=== PATIENT | female | born 1990 | race Caucasian/White ===

== ENCOUNTER 2017-04-12 11:38 | Emergency (ER) | payer OTHER ==
[~2017-04-12] VITALS: Ht 170.2 cm; Wt 126.6 kg
[2017-04-12 11:40] VITALS: Ht 170.2 cm; Wt 126.6 kg
[2017-04-12] MEDS ORDERED: SODIUM CHLORIDE 0.9% 1000ML 1,000 ML IV STA (12:14)
[2017-04-12 12:35] LABS: BASO % 0.2 %; BASO ABS # 0.02 K/uL (0-0.2); COMPLETE YES; EOS % 1.2 %; HEMATOCRIT 37.9 % (37-47); IG% 0.2 %; LYMPH % 19.4 %; LYMPH ABS # 1.95 K/uL (1.2-3.4); MEAN CELL VOLUME 92.9 fL (80-100); MEAN CORPUSCULAR HEMOGLOBIN 30.9 pg (25-34); MEAN CORPUSCULAR HGB CONC 33.2 g/dl (32-36); MEAN PLATELET VOLUME 9.6 fL (7.4-10.4); MONO % 8.1 %; NEUT % 70.9 %; PLATELET COUNT 258 K/uL (130-400); RED BLOOD COUNT 4.08 M/uL (4.2-5.4); WHITE BLOOD COUNT 10.04 K/uL (4.8-10.8)
[2017-04-12 12:42] LABS: PROTHROMBIN TIME (PATIENT) 10.7 SECONDS (9.0-12.0)
[2017-04-12 12:54] LABS: BUN/CREATININE RATIO 10.6 (10-20); CALCIUM 8.6 mg/dl (8.5-10.1); CREATININE 0.55 mg/dl (0.60-1.20); POTASSIUM 3.5 mmol/L (3.5-5.1)
[2017-04-12 12:57] LABS: ALB/GLOB RATIO 1.1 (0.9-2)
[2017-04-12 13:52] LABS: URINE APPEARANCE CLOUDY (CLEAR); URINE BILIRUBIN NEG (NEG); URINE COLOR ORANGE; URINE EPITHELIAL CELL AUTO >30 /lpf (0-5); URINE NITRITE NEG (NEG); URINE PH 6.5 (4.5-7.5); URINE SPECIFIC GRAVITY 1.014 (1.000-1.030); UROBILINOGEN NEG (NEG)
[2017-04-12 14:09] LABS: MANUAL MICROSCOPIC REQUIRED? NO; REVIEW REQ? NO
--- NOTE | 2017-04-12 14:30 | EMERGENCY ROOM VISIT NOTE ---
History Report prepared by Lali: Radha Lamb Under the Supervision of: Dr. Joel Dockery D.O. First contact with patient: 12:02 Chief Complaint: WEAKNESS Stated Complaint: WEAKNESS,PAIN,BLEEDING(ACUTE) History of Present Illness The patient is a 26 year old female who presents to the Emergency Room with complaints of persistent vaginal bleeding starting last night. The patient had an in [place] yesterday. She was 17 weeks into an single gestation . There was some placenta left behind. She received 2 ibuprofen and Flagyl yesterday, She had some minimal bleeding yesterday. Starting at 2230 last night she has been bleeding every 30 minutes to an hour and soaking 2 pads per hour. She reports lower abdominal cramping, weakness, fatigue, and lightheadedness. She denies any fever. This was her second . She has a child at home. She has a history of fibromyalgia. She denies any tobacco or alcohol use. Source of History: patient Onset: last night Position: other (vaginal) Quality: other (bleeding) Timing: other (persistent) Associated Symptoms: + abdominal pain, + fatigue, + weakness, No fevers Note: Pt reports feeling lightheaded. Review of Systems See HPI for pertinent positives & negatives. A total of 10 systems reviewed and were otherwise negative. Past Medical & Surgical Medical Problems: (1) Fibromyalgia Family History No pertinent family history stated. Social History Smoking Status: Never Smoker Marital Status: Occupation Status: unemployed Current/Historical Medications Scheduled Cephalexin Monohydrate (Keflex), 500 MG PO QID Scheduled PRN Oxycodone Immediate Rel Tab (Roxicodone Ir), 1-2 TAB PO Q4H PRN for Severe Pain Allergies Coded Allergies: Sulfa Antibiotics (Unverified Allergy, Unknown, RASH, 04/12/17) Tetracycline (Unverified Allergy, Unknown, ANAPHYLAXIS, 04/12/17) Physical Exam Vital Signs Date Time Temp Pulse Resp B/P (MAP) Pulse Ox O2 Delivery O2 Flow Rate FiO2 04/12/17 16:40 71 20 117/71 98 Room Air 04/12/17 14:55 73 18 115/62 100 Room Air 04/12/17 13:23 84 18 122/69 96 Room Air 04/12/17 12:19 83 04/12/17 12:17 98 Room Air 04/12/17 11:40 36.7 91 17 127/81 98 Room Air Physical Exam GENERAL: Patient is awake, alert, and in no acute distress. Patient is resting comfortably and showing no signs of anxiety EYES: The conjunctivae are clear. The pupils are round and reactive. EARS, NOSE, MOUTH AND THROAT: The nose is without any evidence of any deformity. Mucous membranes are moist tongue is midline NECK: The neck is nontender and supple. RESPIRATORY: Normal respiratory effort is noted there is no evidence of wheezing rhonchi or rales CARDIOVASCULAR: Regular rate and rhythm noted there no murmurs rubs or gallops normal S1 normal S2 GASTROINTESTINAL: The abdomen is soft. Bowel sounds are present in all quadrants. Abdomen is nontender PELVIS: External genitalia are normal in appearance, no rashes, speculum exam reveals significant pooling of blood in the vaginal vault, cervix open to fingertip, significant uterine tenderness on palpation. MUSCULOSKELETAL/EXTREMITIES: There is no evidence of gross deformity full range of motion is noted in the hips and shoulders SKIN: There is no obvious evidence of any rash. There are no petechiae, pallor or cyanosis noted. NEUROLOGIC: Patient is awake alert and oriented x3 Medical Decision & Procedures ER Provider Diagnostic Interpretation: Radiology results as stated below per my review and radiologist interpretation: ULTRASOUND OF THE PELVIS CLINICAL HISTORY: Recent elective . Vaginal bleeding. Reported history of retained proximal of conception. COMPARISON STUDY: No priors. TECHNIQUE: Real-time, grayscale, and color flow sonography of the pelvis is performed transabdominally. Endovaginal examination was deferred. Images are reviewed in the transverse and longitudinal planes. FINDINGS: Uterus: The uterus is mildly enlarged and heterogeneous in echotexture, measuring 15.4 x 5.7 x 10.5 cm. Endometrium: The endometrium measures up to 1.2 cm in thickness. There is a thick and hypervascular echogenic soft tissue thickening seen in the fundal region. This measures up to 5.2 cm. Echogenic reflectors within the endometrial cavity may represent small foci of gas. Ovaries: The ovaries were not visualized on this transabdominal examination. Pelvis: There is no free fluid in the cul-de-sac. No concerning adnexal lesion is seen. IMPRESSION: 1. The uterus is enlarged and heterogeneous. 2. There is heterogeneous, hypervascular, and echogenic soft tissue thickening seen involving the endometrium in the fundal region. This measures up to 5.2 cm and is highly concerning for retained product of conception. 3. The ovaries were not visualized on this transabdominal examination. 4. Small foci of gas are suggested within the endometrial canal, likely due to recent surgery. Correlate clinically for evidence of superimposed endometritis. Electronically signed by: Elijah Conteh M.D. 04/12/2017 2:49 PM Dictated Date/Time: 04/12/2017 2:45 PM Laboratory Results 04/12/17 12:15 Red Blood Count 4.08, Mean Corpuscular Volume 92.9, Mean Corpuscular Hemoglobin 30.9, Mean Corpuscular Hemoglobin Concent 33.2, Mean Platelet Volume 9.6, Neutrophils (%) (Auto) 70.9, Lymphocytes (%) (Auto) 19.4, Monocytes (%) (Auto) 8.1, Eosinophils (%) (Auto) 1.2, Basophils (%) (Auto) 0.2, Neutrophils # (Auto) 7.12, Lymphocytes # (Auto) 1.95, Monocytes # (Auto) 0.81, Eosinophils # (Auto) 0.12, Basophils # (Auto) 0.02 04/12/17 12:15 Test 04/12/17 12:15 04/12/17 13:40 White Blood Count 10.04 K/uL (4.8-10.8) Red Blood Count 4.08 M/uL (4.2-5.4) Hemoglobin 12.6 g/dL (12.0-16.0) Hematocrit 37.9 % (37-47) Mean Corpuscular Volume 92.9 fL (80-100) Mean Corpuscular Hemoglobin 30.9 pg (25-34) Mean Corpuscular Hemoglobin Concent 33.2 g/dl (32-36) Platelet Count 258 K/uL (130-400) Mean Platelet Volume 9.6 fL (7.4-10.4) Neutrophils (%) (Auto) 70.9 % Lymphocytes (%) (Auto) 19.4 % Monocytes (%) (Auto) 8.1 % Eosinophils (%) (Auto) 1.2 % Basophils (%) (Auto) 0.2 % Neutrophils # (Auto) 7.12 K/uL (1.4-6.5) Lymphocytes # (Auto) 1.95 K/uL (1.2-3.4) Monocytes # (Auto) 0.81 K/uL (0.11-0.59) Eosinophils # (Auto) 0.12 K/uL (0-0.5) Basophils # (Auto) 0.02 K/uL (0-0.2) RDW Standard Deviation 44.8 fL (36.4-46.3) RDW Coefficient of Variation 13.1 % (11.5-14.5) Immature Granulocyte % (Auto) 0.2 % Immature Granulocyte # (Auto) 0.02 K/uL (0.00-0.02) Prothrombin Time 10.7 SECONDS (9.0-12.0) Prothromb Time International Ratio 1.0 (0.9-1.1) Activated Partial Thromboplast Time 25.8 SECONDS (21.0-31.0) Partial Thromboplastin Ratio 1.0 Anion Gap 9.0 mmol/L (3-11) Est Creatinine Clear Calc Drug Dose 212.5 ml/min Estimated GFR () 149.0 Estimated GFR (Non- 128.5 BUN/Creatinine Ratio 10.6 (10-20) Calcium Level 8.6 mg/dl (8.5-10.1) Total Bilirubin 0.5 mg/dl (0.2-1) Aspartate Amino Transf (AST/SGOT) 10 U/L (15-37) Alanine Aminotransferase (ALT/SGPT) 18 U/L (12-78) Alkaline Phosphatase 61 U/L (45-117) Total Protein 6.6 gm/dl (6.4-8.2) Albumin 3.4 gm/dl (3.4-5.0) Globulin 3.2 gm/dl (2.5-4.0) Albumin/Globulin Ratio 1.1 (0.9-2) Human Chorionic Gonadotropin, Quant 8527 mIU/mL Urine Color ORANGE Urine Appearance CLOUDY (CLEAR) Urine pH 6.5 (4.5-7.5) Urine Specific [place] 1.014 (1.000-1.030) Urine Protein 1+ (NEG) Urine Glucose (UA) NEG (NEG) Urine Ketones TRACE (NEG) Urine Occult Blood 3+ (NEG) Urine Nitrite NEG (NEG) Urine Bilirubin NEG (NEG) Urine Urobilinogen NEG (NEG) Urine Leukocyte Esterase LARGE (NEG) Urine WBC (Auto) >30 /hpf (0-5) Urine RBC (Auto) >30 /hpf (0-4) Urine Hyaline Casts (Auto) 1-5 /lpf (0-5) Urine Epithelial Cells (Auto) >30 /lpf (0-5) Urine Bacteria (Auto) 1+ (NEG) Laboratory results per my review. Medications Administered Medications (Trade) Dose Ordered Sig/Dylan Route Start Time Stop Time Status Last Admin Dose Admin Sodium Chloride 1,000 ml @ 999 mls/hr Q1H1M STAT IV 04/12/17 12:14 04/12/17 13:14 DC 04/12/17 12:14 999 MLS/HR Morphine Sulfate (MoRPHine SULFATE INJ) 4 mg Q15M PRN IV 04/12/17 15:15 04/26/17 15:14 04/12/17 17:48 4 MG Ondansetron HCl (Zofran Inj) 4 mg NOW STAT IV 04/12/17 15:01 04/12/17 15:02 DC 04/12/17 15:08 4 MG Methylergonovine Maleate (Methergine Inj) 0.2 mg ONE STAT IM 04/12/17 15:54 04/12/17 15:56 DC 04/12/17 16:42 0.2 MG Ceftriaxone Sodium (Rocephin Inj) 1 gm NOW STAT IV 04/12/17 15:54 04/12/17 15:56 DC 04/12/17 16:40 1 GM ED Course 1211: The patient was evaluated in room B5. A complete history and physical examination were performed. 1214: NSS 1000 ml @ 999 mls/hr IV. 1501: Zofran Inj 4 mg IV. 1515: Morphine Sulfate 4 mg IV. 1523: I performed a pelvic exam in the presence of a female nurse at this time. Findings as listed in the physical exam. 1549: I discussed the patient's case with Dr. Ye, [facility] - Network Systems Analyst. We went over her recommendations. 1554: Rocephin Inj 1 gm IV, Methergine Inj 0.2 mg IM. 1555: Upon reevaluation, the patient is doing well. I discussed the results and treatment plan with her. She verbalized agreement of the treatment plan. She was discharged home. 1640: She has requested Network Systems Analyst come to see her. I have spoken with Dr. Ye who will be coming in to see the patient. 1715: The patient is being evaluated by Dr. Ye. Medical Decision Prior records/ancillary studies reviewed. Triage Nursing notes reviewed. Additional history obtained from the family. The patient's history was concerning for vaginal bleeding and abdominal pain. Differential diagnosis: Etiologies such as ectopic , dysfunction uterine bleeding, bleeding dyscrasia, trauma, infection, as well as others were entertained. Medication Reconciliation: I attest that I have personally reviewed the patient' s current medications list. Blood pressure screening: Patient was found to have normal blood pressure on screening and does not require follow-up. The patient is a 26-year-old female who presented to the emergency department for an evaluation of vaginal bleeding. The patient had a elective yesterday at 17 weeks' gestation. She was told when she left the procedure that she had some retained products of conception. She started having worsening cramping and vaginal bleeding. On my pelvic exam the patient did not have any acute bleeding. She had some blood that was pulling but no active bleeding. She had some endometrial tenderness but no other signs of endometritis such as fever or elevated white blood cell count. I discussed the patient's laboratory and radiographic studies with her. She was treated with IV fluids IV pain medicine and IV antiemetics. She was also started on an IV antibiotic as well as given Methergine in the emergency department. I discussed her case with the on-call CLAIMS ASSOCIATE physician. She has agreed to evaluate the patient in the emergency department for further management and disposition. [place] Drug Monitoring Program Search Results: patient reviewed within database, no issues identified Consults Time Called: [phone] Consulting Physician: Dr. Ye, [facility] - Network Systems Analyst Returned Call: [phone] I discussed the patient's case with her. We went over her recommendations. Impression Primary Impression: Retained products of conception Scribe Attestation The scribe's documentation has been prepared under my direction and personally reviewed by me in its entirety. I confirm that the note above accurately reflects all work, treatment, procedures, and medical decision making performed by me. Departure Information Dispostion Home / Self-Care Prescriptions Oxycodone Immediate Rel Tab (ROXICODONE IR) 5 Mg Tab 1-2 TAB PO Q4H Y for Severe Pain, #24 TAB Prov: Joel Dockery, DO 04/12/17 Cephalexin Monohydrate (KEFLEX) 500 Mg Cap 500 MG PO QID, #28 CAP Prov: Joel Dockery, DO 04/12/17 Referrals No Doctor, Assigned (PCP) Lela Ye, Yousif.O. Forms HOME CARE DOCUMENTATION FORM, IMPORTANT VISIT INFORMATION Patient Instructions ED Therapeutic , [facility] Additional Instructions Continue all medications as prescribed. Call the CLAIMS ASSOCIATE doctor in the morning to schedule a follow-up appointment. Return to the emergency department immediately if symptoms change worsen or the need arises.
--- NOTE | 2017-04-12 14:50 | DIAGNOSTIC IMAGING REPORT ---
ULTRASOUND OF THE PELVIS CLINICAL HISTORY: Recent elective . Vaginal bleeding. Reported history of retained proximal of conception. COMPARISON STUDY: No priors. TECHNIQUE: Real-time, grayscale, and color flow sonography of the pelvis is performed transabdominally. Endovaginal examination was deferred. Images are reviewed in the transverse and longitudinal planes. FINDINGS: Uterus: The uterus is mildly enlarged and heterogeneous in echotexture, measuring 15.4 x 5.7 x 10.5 cm. Endometrium: The endometrium measures up to 1.2 cm in thickness. There is a thick and hypervascular echogenic soft tissue thickening seen in the fundal region. This measures up to 5.2 cm. Echogenic reflectors within the endometrial cavity may represent small foci of gas. Ovaries: The ovaries were not visualized on this transabdominal examination. Pelvis: There is no free fluid in the cul-de-sac. No concerning adnexal lesion is seen. IMPRESSION: 1. The uterus is enlarged and heterogeneous. 2. There is heterogeneous, hypervascular, and echogenic soft tissue thickening seen involving the endometrium in the fundal region. This measures up to 5.2 cm and is highly concerning for retained product of conception. 3. The ovaries were not visualized on this transabdominal examination. 4. Small foci of gas are suggested within the endometrial canal, likely due to recent surgery. Correlate clinically for evidence of superimposed endometritis. Electronically signed by: Elijah Conteh M.D. 04/12/2017 2:49 PM Dictated Date/Time: 04/12/2017 2:45 PM
[2017-04-12] MEDS ORDERED: ONDANSETRON INJ 2 MG/ML 2 ML VIAL IV STA (15:01)
[2017-04-12] MEDS: MoRPHine SULFATE 4 MG/ML 1 ML CARP\\VIAL IV PRN ×2 (15:08→17:48)
[2017-04-12] MEDS ORDERED: METHYLERGONOVINE MALEATE 0.2 MG/ML AMP IM STA (15:54)
[2017-04-12] MEDS ORDERED: CEFTRIAXONE SOD INJ 1 GM ADDVIAL IV STA (15:54)
[2017-04-12] MEDS ORDERED: OXYC1TAB3 PO (16:17)
[2017-04-12] MEDS ORDERED: CEPH500C2 PO ×2 (16:17→23:03)
--- NOTE | 2017-04-12 17:57 | Medical Consult ---
Consultation Date of Consultation: Apr 12, 2017. Attending Physician: Dr. Dockery Reason for Consultation: Retained products of conception after 17 week History of Present Illness Patient is a 26-year-old 001 with last menstrual period of 12/16/2016 who [facility]. She was told after the procedure that there were remnants of placenta that they were unable to remove however that she would pass this on her own. She was treated with Flagyl and ibuprofen and discharged to home. She presents today to the emergency department with complaint of heavy vaginal bleeding off and on since the procedure yesterday low abdominal cramping and concerned for retained products of conception. She admits to some nausea however no vomiting she has not had any food or drink today. No problems with voiding or bowel movements. Gynecologic history: History of section 1. Pap up-to-date and normal per patient. No history of sexually transmitted infections. Past medical history: Fibromyalgia Past surgical history: Yesterday's D&E, 3 years ago, wrist surgery Past Medical/Surgical History Medical Problems: (1) Retained products of conception Status: Acute Family History No family history of bleeding disorders. Social History Smoking Status: Never Smoker Marital Status: Occupation Status: unemployed Allergies Coded Allergies: Sulfa Antibiotics (Unverified Allergy, Unknown, RASH, 04/12/17) Tetracycline (Unverified Allergy, Unknown, ANAPHYLAXIS, 04/12/17) Current Inpatient Medications Current Inpatient Medications Medications (Trade) Dose Ordered Sig/Dylan Route Start Time Stop Time Status Last Admin Dose Admin Morphine Sulfate (MoRPHine SULFATE INJ) 4 mg Q15M PRN IV 04/12/17 15:15 04/26/17 15:14 04/12/17 15:08 4 MG Review of Systems Constitutional: No problem reported Eyes: No problem reported ENT: No problem reported Respiratory: No problem reported Cardiovascular: No problem reported Abdomen: No problem reported Musculoskeletal: No problem reported Genitourinary - Female: + vaginal bleeding Neurologic: No problem reported Psychiatric: No problem reported Endocrine: No problem reported Hematologic / Lymphatic: No problem reported Integumentary: No problem reported Allergic / Immunologic: No problem reported Physical Exam Date Time Temp Pulse Resp B/P (MAP) Pulse Ox O2 Delivery O2 Flow Rate FiO2 04/12/17 16:40 71 20 117/71 98 Room Air 04/12/17 14:55 73 18 115/62 100 Room Air 04/12/17 13:23 84 18 122/69 96 Room Air 04/12/17 12:19 83 04/12/17 12:17 98 Room Air 04/12/17 11:40 36.7 91 17 127/81 98 Room Air General Appearance: WD/WN, no apparent distress Head: normocephalic ENT: hearing grossly normal Respiratory/Chest: normal breath sounds, no respiratory distress Cardiovascular: regular rate, rhythm Abdomen/GI: non tender, soft Extremities/Musculoskelatal: no calf tenderness Neurologic/Psych: alert, normal mood/affect, oriented x 3 Skin: normal color Laboratory Results Last 24 Hours Test 04/12/17 12:15 04/12/17 13:40 White Blood Count 10.04 K/uL Red Blood Count 4.08 M/uL Hemoglobin 12.6 g/dL Hematocrit 37.9 % Mean Corpuscular Volume 92.9 fL Mean Corpuscular Hemoglobin 30.9 pg Mean Corpuscular Hemoglobin Concent 33.2 g/dl Platelet Count 258 K/uL Mean Platelet Volume 9.6 fL Neutrophils (%) (Auto) 70.9 % Lymphocytes (%) (Auto) 19.4 % Monocytes (%) (Auto) 8.1 % Eosinophils (%) (Auto) 1.2 % Basophils (%) (Auto) 0.2 % Neutrophils # (Auto) 7.12 K/uL Lymphocytes # (Auto) 1.95 K/uL Monocytes # (Auto) 0.81 K/uL Eosinophils # (Auto) 0.12 K/uL Basophils # (Auto) 0.02 K/uL RDW Standard Deviation 44.8 fL RDW Coefficient of Variation 13.1 % Immature Granulocyte % (Auto) 0.2 % Immature Granulocyte # (Auto) 0.02 K/uL Prothrombin Time 10.7 SECONDS Prothromb Time International Ratio 1.0 Activated Partial Thromboplast Time 25.8 SECONDS Partial Thromboplastin Ratio 1.0 Sodium Level 139 mmol/L Potassium Level 3.5 mmol/L Chloride Level 107 mmol/L Carbon Dioxide Level 23 mmol/L Anion Gap 9.0 mmol/L Blood Urea Nitrogen 6 mg/dl Creatinine 0.55 mg/dl Est Creatinine Clear Calc Drug Dose 212.5 ml/min Estimated GFR () 149.0 Estimated GFR (Non- 128.5 BUN/Creatinine Ratio 10.6 Random Glucose 83 mg/dl Calcium Level 8.6 mg/dl Total Bilirubin 0.5 mg/dl Aspartate Amino Transf (AST/SGOT) 10 U/L Alanine Aminotransferase (ALT/SGPT) 18 U/L Alkaline Phosphatase 61 U/L Total Protein 6.6 gm/dl Albumin 3.4 gm/dl Globulin 3.2 gm/dl Albumin/Globulin Ratio 1.1 Human Chorionic Gonadotropin, Quant 8527 mIU/mL Urine Color ORANGE Urine Appearance CLOUDY Urine pH 6.5 Urine Specific [place] 1.014 Urine Protein 1+ Urine Glucose (UA) NEG Urine Ketones TRACE Urine Occult Blood 3+ Urine Nitrite NEG Urine Bilirubin NEG Urine Urobilinogen NEG Urine Leukocyte Esterase LARGE Urine WBC (Auto) >30 /hpf Urine RBC (Auto) >30 /hpf Urine Hyaline Casts (Auto) 1-5 /lpf Urine Epithelial Cells (Auto) >30 /lpf Urine Bacteria (Auto) 1+ Assessment & Plan Assessment: 26-year-old 001 at 16 weeks 4 days by LMP. Postoperative day 1 status post therapeutic with concern for retained products of conception I discussed risks benefits alternatives with patient of watching and waiting versus proceeding to the operating room for a repeat dilation and evacuation. Reviewed risk of waiting which is risk of retained products products chronic causing septic . Also reviewed risks of surgery including bleeding scarring infection damage to uterus tubes and ovaries and surrounding organs. Reviewed risk of uterine perforation especially increased given yesterday's procedure as well as risk of uterine scarring or Asherman syndrome given yesterday's procedure. All questions were answered of patient and her mother who was at bedside patient elected to proceed with surgery and she signed informed consent under no duress. We'll proceed to the operating room for suction dilation and evacuation under ultrasound guidance.
--- NOTE | 2017-04-12 17:58 | History & Physical Bridge Note ---
H&P Re-Evaluation Bridge Note: I have examined the patient, reviewed the History & Physical and in the interval since the performance of the History & Physical I have noted the following changes of clinical significance: No changes noted
[2017-04-12 21:13] VITALS: O2SAT 98
[2017-04-12] MEDS ORDERED: CARBOPROST TROMETHAMINE 250 MCG/ML AMP ONE (21:45)
[2017-04-12] MEDS ORDERED: PROPOFOL IV EMULSION 10 MG/ML 20 ML VIAL IV ONE (21:48)
[2017-04-12] MEDS ORDERED: FENTANYL CITRATE INJ 50 MCG/1 ML 2 ML VIAL ONE ×2 (21:49→23:12)
[2017-04-12] MEDS ORDERED: HYDROmorphone INJ 1 MG/ML SYR IV PRN (22:00)
[2017-04-12] MEDS ORDERED: EpHEDrine SULFATE INJ 50 MG/ML AMP IV PRN (22:00)
[2017-04-12] MEDS ORDERED: ATROPINE SULFATE 0.1 MG/ML 5ML SYR IV PRN (22:00)
[2017-04-12] MEDS ORDERED: ONDANSETRON INJ 2 MG/ML 2 ML VIAL IV PRN ×2 (22:00→23:00)
[2017-04-12] MEDS ORDERED: MISOPROSTOL 200 MCG TAB PR PRN (22:00)
[2017-04-12] MEDS ORDERED: PROMETHAZINE HCL INJ 6.25 MG in SODIUM CHLORIDE 0.9% 50ML 50 ML IV PRN (22:00)
[2017-04-12] MEDS ORDERED: ONDANSETRON INJ 2 MG/ML 2 ML VIAL ONE (22:20)
[2017-04-12] MEDS ORDERED: ROCURONIUM BROMID 50MG/5ML SYR ONE (22:20)
[2017-04-12] MEDS ORDERED: KETOROLAC TROMETHAMINE 30 MG/ML VIAL ONE (22:20)
[2017-04-12] MEDS ORDERED: SUCCINYLCHOLINE 100MG/5ML SYR IV ONE (22:20)
[2017-04-12] MEDS ORDERED: LIDOCAINE HCL 2% 2 ML VIAL (20MG/ML) ONE (22:20)
[2017-04-12] MEDS ORDERED: SODIUM CHLORIDE 0.9% 1000ML 1,000 ML IV SCH (22:51)
--- NOTE | 2017-04-12 22:53 | [facility] Post Operative Brief Note ---
Immediate Operative Summary Operative Date Apr 12, 2017. Pre-Operative Diagnosis Retained products of conception Post-Operative Diagnosis Retained products of conception Procedure(s) Performed Ultrasound Guided Dilation and Evacuation Surgeon Dr. Ye Instructor Ballroom Dancing Surgeon(s) none Estimated Blood Loss 700cc Findings Placental fragments and products of conception. At conclusion of case, transabdominal ultrasound showed no remaining intrauterine products of conception. Specimens A. Products of conception Drains bladder drained prior to procedure Anesthesia general Complication(s) None Disposition Recovery Room / PACU
[2017-04-12] MEDS ORDERED: PROMETHAZINE HCL INJ 25 MG in SODIUM CHLORIDE 0.9% 50ML 50 ML IV PRN (23:00)
[2017-04-12] MEDS ORDERED: OXYCODONE/ACETAMINOPHEN 5-325 TAB PO PRN ×2 (23:00)
[2017-04-12] MEDS ORDERED: METH0.2T39 PO (23:02)
[2017-04-12] MEDS ORDERED: METR500T PO (23:03)
--- NOTE | 2017-04-12 23:04 | Discharge Instructions ---
Discharge Instructions Date of Service Apr 12, 2017. Visit Reason for Visit: Weakness,Pain,Bleeding(Acute) Discharge Discharge Diagnosis / Problem: s/p suction D&E Discharge Goals Goal(s): Therapeutic intervention Activity Recommendations Activity Limitations: per Instructions/Follow-up section Anesthesia . Post Anesthesia Instructions: If you have had General Anesthesia or IV Sedation: * Do not drive today. * Resume driving when surgeon permits. * Do not make important decisions or sign legal documents today. * Call surgeon for: 1. Temperature elevations greater than 101 degrees F. 2. Uncontrollable pain. 3. Excessive bleeding. 4. Persistent nausea and vomiting. 5. Medication intolerance (nausea, vomiting or rash). * For nausea and vomiting use only clear liquids such as: tea, soda, bouillon until nausea subsides, then gradually increase diet as tolerated. * If you have any concerns or questions, call your surgeon's office. If physician is unavailable and it is an emergency, call 911 or go to the nearest emergency room. . Instructions / Follow-Up Instructions / Follow-Up ACTIVITY RECOMMENDATIONS: * Avoid tampons, douching, hot tubs, pools, and intercourse until bleeding has stopped. * May shower as usual. * No strenuous activity for 24-48 hours. After 24-48 hours, you may do anything you feel like doing (driving and sports are okay). SPECIAL CARE INSTRUCTIONS: Special Diet: * Mild nausea may occur in the immediate post-operative period. * Take clear liquids such as tea, cola or bouillon until all nausea has subsided; you may then resume your normal diet. Special Care: * Light bleeding and vaginal spotting can last from a few days to 3-4 weeks. Call your doctor if bleeding becomes heavier than the heaviest part of your period. * Check your temperature twice a day for one week. If it goes above 100.4 degrees Fahrenheit (38.0 Celsius), notify your doctor. * Call your doctor's office for an appointment for 6 weeks after your surgery. FOLLOW-UP VISIT: Call your doctor's office for an appointment for 6 weeks after your surgery. Diet Recommendations Recommended Home Diet: resume previous diet Procedures Procedures Performed: Ultrasound Guided Dilation and Evacuation Pending Studies Studies pending at discharge: no Medical Emergencies . Who to Call and When: Medical Emergencies: If at any time you feel your situation is an emergency, please call 911 immediately. . Non-Emergent Contact Non-Emergency issues call your: Primary Care Provider, Residency Director . . "Provider Documentation" section prepared by Lela Ye. .
[2017-04-12] MEDS ORDERED: MISOPROSTOL 200 MCG TAB PR STA (23:05)
[2017-04-12] MEDS: FENTANYL CITRATE INJ 50 MCG/1 ML 2 ML VIAL IV PRN ×2 (23:15→23:44)
--- NOTE | 2017-04-12 23:39 | [facility] Operative Report ---
Operative Report Operative Date Apr 12, 2017. Pre-Operative Diagnosis Retained products of conception Post-Operative Diagnosis Retained products of conception Procedure(s) Performed Ultrasound Guided Dilation and Evacuation Surgeon Dr. Ye Improvement Rn Surgeon(s) none Estimated Blood Loss 700cc Findings Placental fragments and large amounts of products of conception. At conclusion of procedure transabdominal ultrasound showed no retained products of conception and a thin uterine lining. Specimens A. Products of conception Drains bladder drained prior to procedure Anesthesia general Complication(s) None Disposition Recovery Room / PACU Indications Patient is a 26-year-old 001 at 16 weeks 4 days who underwent a therapeutic at [facility] in [place] yesterday. She was told after yesterday's procedure that she possibly had retained placental fragments that were unable to be removed during the procedure. Today she had heavy vaginal bleeding with passage of clots and presented to the emergency department for further evaluation. Ultrasound revealed a 5 cm hypervascular mass in the fundal region of the uterus that appeared to be retained products of conception. Description of Procedure The patient was seen in the preoperative holding area where risks benefits alternatives to surgery were reviewed she elected to proceed with surgery. She had signed informed consent previously. She was then taken to the operating room where general anesthesia was introduced a timeout was confirmed. She had been given Rocephin in the emergency department. Her bladder was drained. A weighted speculum was placed in the vagina, the cervix was visualized and the anterior lip was grasped with a single-tooth tenaculum. The cervix was gently dilated to admit a 14 mm curved suction curet. Using ultrasound guidance by an strategy specialist from the radiology department the gentle suction suction curettage was performed under direct ultrasound visualization. A sharp banjo curette was used to perform a gentle sweep of the products of conception and additional passes of the suction curet were made until all products were removed. TransAbdominal ultrasound revealed no remaining products of conception at the conclusion of the case. Hemabate was given for hemostatic purposes the uterus clamped down and excellent hemostasis was noted. All instruments were removed from the vagina. The patient tolerated the procedure well was taken to the recovery room in stable and good condition. She will be discharged home following her recovery with prescriptions for Flagyl Keflex and Methergine due to doxycycline allergy. She is to follow-up in the office within 1 week for postoperative visit. I attest to the content of the Intraoperative Record and any orders documented therein. Any exceptions are noted below.
[2017-04-13] MEDS ORDERED: METHYLERGONOVINE MALEATE 0.2 MG TAB PO SCH
[2017-04-13 00:25] VITALS: BP 123/79; PULSE 75; TEMP 35.9; O2SAT 94
[2017-04-13] MEDS ORDERED: OXYCODONE/ACETAMINOPHEN 5-325 TAB ONE (00:28)
[2017-04-13 00:45] VITALS: BP 119/82; PULSE 65; TEMP 36; O2SAT 93
--- NOTE | 2017-04-13 01:28 | Anesthesiology Progress Note ---
Anesthesia Post Op Note Date & Time Apr 13, 2017 at 01:28 Vital Signs Pain Intensity: 6.0 Vital Signs Past 12 Hours Date Time Temp Pulse Resp B/P (MAP) Pulse Ox O2 Delivery O2 Flow Rate FiO2 04/13/17 00:45 36.0 65 18 119/82 (94) 93 Room Air 04/13/17 00:31 60 18 116/91 (99) 96 Room Air 04/13/17 00:25 35.9 75 123/79 94 Room Air 04/13/17 00:20 75 18 122/82 (101) 93 Room Air 04/13/17 00:02 74 18 128/92 (98) 93 Room Air 04/12/17 23:55 58 18 124/82 (98) 94 Room Air 04/12/17 23:45 36.0 57 18 123/79 (85) 91 Room Air 04/12/17 23:36 129/81 (89) 04/12/17 23:35 57 18 04/12/17 23:35 58 18 92 04/12/17 23:30 63 18 04/12/17 23:30 36.0 63 18 129/81 (89) 92 Room Air 04/12/17 23:25 65 17 04/12/17 23:25 63 17 91 04/12/17 23:20 80 14 04/12/17 23:20 78 14 91 04/12/17 23:15 69 22 94 04/12/17 23:15 69 22 04/12/17 23:10 64 14 04/12/17 23:10 62 14 95 04/12/17 23:09 75 13 04/12/17 23:09 78 13 94 04/12/17 23:05 66 17 95 04/12/17 23:05 66 17 04/12/17 23:04 68 17 96 04/12/17 23:04 69 17 04/12/17 23:01 134/81 (109) 04/12/17 23:01 134/81 04/12/17 23:00 75 18 98 04/12/17 23:00 74 18 04/12/17 22:59 79 15 97 04/12/17 22:59 79 15 04/12/17 22:54 79 17 04/12/17 22:54 81 17 96 04/12/17 22:52 123/84 04/12/17 22:50 117/103 04/12/17 22:49 36.2 79 20 123/89 95 Room Air 04/12/17 22:49 89 16 96 04/12/17 22:49 93 16 04/12/17 21:13 71 20 105/71 98 Room Air 04/12/17 20:06 78 20 128/66 98 Room Air 04/12/17 18:41 67 19 102/57 98 Room Air 04/12/17 17:55 78 20 115/69 97 Room Air 04/12/17 16:40 71 20 117/71 98 Room Air 04/12/17 14:55 73 18 115/62 100 Room Air Notes Mental Status: alert / awake / arousable, participated in evaluation Pt Amnestic to Procedure: Yes Nausea / Vomiting: adequately controlled Pain: adequately controlled Airway Patency, RR, SpO2: stable & adequate BP & HR: stable & adequate Hydration State: stable & adequate Anesthetic Complications: no major complications apparent
--- NOTE | 2017-04-13 09:40 | DIAGNOSTIC IMAGING REPORT ---
ULTRASOUND GUIDANCE FOR DILATATION AND EVACUATION CLINICAL HISTORY: Retained products of conception. COMPARISON STUDY: ultrasound April 12, 2017. PROCEDURE: Ultrasound guidance was provided for dilatation and evacuation. These images again demonstrate a markedly thickened endometrium as shown on prior ultrasound. No radiologist was present for this exam. IMPRESSION: Ultrasound guidance provided for dilatation and evacuation for retained products of conception. Electronically signed by: Blue Ayers M.D. 04/13/2017 9:39 AM Dictated Date/Time: 04/13/2017 9:38 AM
== END 2017-04-12 21:30 | disposition home or self-care (01) ==
LOC: C.EDB 11:39
DX: O73.1 Retained portions of placenta and membranes, without hemorrhage (principal); M79.7 Fibromyalgia

== ENCOUNTER 2017-06-06 12:10 | Emergency (ER) | payer OTHER ==
[~2017-06-06] VITALS: Ht 170.2 cm; Wt 120.3 kg
[~2017-06-06 12:10] MED LIST: CEPH500C2 PO; METH0.2T39 PO; OXYC1TAB3 PO
[2017-06-06 12:13] VITALS: TEMP 37; Ht 170.2 cm; Wt 120.3 kg
[2017-06-06] MEDS ORDERED: LORAZEPAM 0.5 MG TAB PO STA (12:28)
[2017-06-06] MEDS ORDERED: ONDANSETRON INJ 2 MG/ML 2 ML VIAL IV STA (12:28)
[2017-06-06] MEDS ORDERED: BCPILLS PO (12:33)
[2017-06-06] MEDS ORDERED: SERT-234 PO (12:33)
--- NOTE | 2017-06-06 12:33 | EMERGENCY ROOM VISIT NOTE ---
History Report prepared by Lali: Tegan White Under the Supervision of: Dr. Nilo Beasley M.D. First contact with patient: 12:17 Chief Complaint: FLU LIKE SX Stated Complaint: CHEST PAINS, HEADACHE, NO APPETITE History of Present Illness The patient is a 26 year old white female with a past medical history of generalized anxiety, insomnia, seasonal depression, and fibromyalgia who presents to the ED with a cc of flu-like symptoms beginning two days ago. The patient takes 100 mg Zoloft. Positive chest pain, anxiety, racing thoughts, sore throat, shortness of breath, chills, nausea, headache, body ache and loss of appetite. Negative: cough, abd pain, vomiting fevers. The patient states that she has a behavioral health appointment coming up. The pt's LNMP 2 weeks ago. Source of History: patient Onset: 2 days aqgo Timing: constant Associated Symptoms: + chills, + headache, + sorethroat, + chest pain, + SOB , + nausea, No fevers, No cough, No vomiting, No abdominal pain Note: Pt notes anxiety, racing thoughts, body aches and loss of appetite. Review of Systems See HPI for pertinent positives and negatives. A total of ten systems were reviewed and were otherwise negative. Past Medical & Surgical Medical Problems: (1) Anxiety (2) Fibromyalgia (3) Insomnia (4) Seasonal depression Family History no pertinent family history stated. Social History Smoking Status: Never Smoker Marital Status: Occupation Status: employed Current/Historical Medications Scheduled Control Pills ( Control Pills), 1 TAB PO DAILY Sertraline (Zoloft), 100 MG PO DAILY Scheduled PRN Lorazepam (Ativan), 0.5 MG PO Q6H PRN for Anxiety/Agitation Allergies Coded Allergies: Sulfa Antibiotics (Unverified Allergy, Unknown, RASH, 06/06/17) Tetracycline (Unverified Allergy, Unknown, ANAPHYLAXIS, 06/06/17) Physical Exam Vital Signs Date Time Temp Pulse Resp B/P (MAP) Pulse Ox O2 Delivery O2 Flow Rate FiO2 06/06/17 14:06 75 18 142/94 98 06/06/17 13:33 67 18 147/94 96 Room Air 06/06/17 12:13 37.0 85 16 115/84 99 Room Air Physical Exam GENERAL: Awake, alert, well-appearing, NAD HENT: Normocephalic, atraumatic. EYES: Normal conjunctiva. Sclera non-icteric. NECK: Supple. No nuchal rigidity. FROM. RESPIRATORY: CTAB, no rhonchi, wheezing, crackles CARDIAC: RRR, no MRG ABDOMEN: Soft, NTND, BS+ MSK: No chest wall TTP, no LE edema NEURO: GCS 15, CN 2-12 intact, moves all 4s on command SKIN: No rash or jaundice noted. Medical Decision & Procedures Laboratory Results 06/06/17 12:40 Red Blood Count 4.36, Mean Corpuscular Volume 92.9, Mean Corpuscular Hemoglobin 30.7, Mean Corpuscular Hemoglobin Concent 33.1, Mean Platelet Volume 9.9, Neutrophils (%) (Auto) 51.9, Lymphocytes (%) (Auto) 38.4, Monocytes (%) (Auto) 8.2, Eosinophils (%) (Auto) 1.0, Basophils (%) (Auto) 0.3, Neutrophils # (Auto) 3.23, Lymphocytes # (Auto) 2.39, Monocytes # (Auto) 0.51, Eosinophils # (Auto) 0.06, Basophils # (Auto) 0.02 06/06/17 12:40 Test 06/06/17 12:40 06/06/17 12:50 06/06/17 13:20 06/06/17 13:24 White Blood Count 6.22 K/uL (4.8-10.8) Red Blood Count 4.36 M/uL (4.2-5.4) Hemoglobin 13.4 g/dL (12.0-16.0) Hematocrit 40.5 % (37-47) Mean Corpuscular Volume 92.9 fL (80-100) Mean Corpuscular Hemoglobin 30.7 pg (25-34) Mean Corpuscular Hemoglobin Concent 33.1 g/dl (32-36) Platelet Count 320 K/uL (130-400) Mean Platelet Volume 9.9 fL (7.4-10.4) Neutrophils (%) (Auto) 51.9 % Lymphocytes (%) (Auto) 38.4 % Monocytes (%) (Auto) 8.2 % Eosinophils (%) (Auto) 1.0 % Basophils (%) (Auto) 0.3 % Neutrophils # (Auto) 3.23 K/uL (1.4-6.5) Lymphocytes # (Auto) 2.39 K/uL (1.2-3.4) Monocytes # (Auto) 0.51 K/uL (0.11-0.59) Eosinophils # (Auto) 0.06 K/uL (0-0.5) Basophils # (Auto) 0.02 K/uL (0-0.2) RDW Standard Deviation 45.4 fL (36.4-46.3) RDW Coefficient of Variation 13.4 % (11.5-14.5) Immature Granulocyte % (Auto) 0.2 % Immature Granulocyte # (Auto) 0.01 K/uL (0.00-0.02) Anion Gap 5.0 mmol/L (3-11) Est Creatinine Clear Calc Drug Dose 124.7 ml/min Estimated GFR () 100.2 Estimated GFR (Non- 86.5 BUN/Creatinine Ratio 10.3 (10-20) Calcium Level 9.0 mg/dl (8.5-10.1) Total Bilirubin 0.6 mg/dl (0.2-1) Direct Bilirubin 0.2 mg/dl (0-0.2) Aspartate Amino Transf (AST/SGOT) 12 U/L (15-37) Alanine Aminotransferase (ALT/SGPT) 24 U/L (12-78) Alkaline Phosphatase 72 U/L (45-117) Total Protein 7.6 gm/dl (6.4-8.2) Albumin 3.9 gm/dl (3.4-5.0) Salicylates Level < 1.7 mg/dl (2.8-20) Acetaminophen Level < 2 ug/ml (10-30) Influenza Type A Antigen Neg for Influ A (NEG) Influenza Type B Antigen Neg for Influ B (NEG) Urine Color YELLOW Urine Appearance CLEAR (CLEAR) Urine pH 8.0 (4.5-7.5) Urine Specific Fletcher 1.018 (1.000-1.030) Urine Protein NEG (NEG) Urine Glucose (UA) NEG (NEG) Urine Ketones NEG (NEG) Urine Occult Blood NEG (NEG) Urine Nitrite NEG (NEG) Urine Bilirubin NEG (NEG) Urine Urobilinogen NEG (NEG) Urine Leukocyte Esterase NEG (NEG) Urine WBC (Auto) 0 /hpf (0-5) Urine RBC (Auto) 0-4 /hpf (0-4) Urine Hyaline Casts (Auto) 0 /lpf (0-5) Urine Epithelial Cells (Auto) 0-5 /lpf (0-5) Urine Bacteria (Auto) NEG (NEG) Urine Test NEG (NEG) Ethyl Alcohol mg/dL < 3.0 mg/dl (0-3) Laboratory results reviewed by me Medications Administered Medications (Trade) Dose Ordered Sig/Dylan Route Start Time Stop Time Status Last Admin Dose Admin Lorazepam (Ativan Tab) 0.5 mg NOW STAT PO 06/06/17 12:28 06/06/17 12:33 DC 06/06/17 12:45 0.5 MG Ondansetron HCl (Zofran Inj) 4 mg NOW STAT IV 06/06/17 12:28 06/06/17 12:33 DC 06/06/17 12:45 4 MG ED Course 1220: The patient was evaluated in room C4. A complete history and physical exam was performed. 1357: I reevaluated the patient. Discussed results and discharge instructions: She verbalized understanding and agreement. The patient is ready for discharge. Medical Decision The patient is a 26 year old white female with a past medical history of generalized anxiety, insomnia, seasonal depression, and fibromyalgia who presents to the ED with a cc of flu-like symptoms beginning two days ago. The patient takes 100 mg Zoloft. Positive chest pain, anxiety, racing thoughts, difficulty breathing sore throat, chills, nausea, headache, body ache and loss of appetite. Negative: cough, abd pain, vomiting fevers. Differential diagnosis includes but it not limited to:anxiety, depression, flu, dehydration, and URI. Patient was seen and evaluated at the bedside. Patient denied any SI or HI. Patient was mildly anxious on exam. Patient was concerned she had a recent coworker that he tested positive for the flu and she had some similar symptoms including body aches. Patient was evaluated with a flu swab as well as blood work. Our mental health specialist O also spoke with the patient. Patient was cleared from our standpoint that will likely be able to have follow-up within the next week. Patient's lab work was fairly unremarkable. Patient had a negative UA. Patient UPT negative. Patient screen negative. Patient was told she will be given a short course of Ativan as needed for anxiety given the fact that she has been unable to follow up with her behavioral health specialist but has made an attempted effort over the last 2 weeks to obtain an appointment. Patient was told she shouldn't take this medication as needed for severe anxiety but should continue to take her Zoloft and then discuss any condition changes with her behavioral health specialist. Patient was given strict follow- up for discharge, and return precautions. Patient agreed with plan of care and was discharged home. Medication Reconcilliation Current Medication List: was personally reviewed by me Blood Pressure Screening Patient's blood pressure: Normal blood pressure Impression Primary Impression: Anxiety Additional Impression: Upper respiratory infection Scribe Attestation The scribe's documentation has been prepared under my direction and personally reviewed by me in its entirety. I confirm that the note above accurately reflects all work, treatment, procedures, and medical decision making performed by me. Departure Information Dispostion Home / Self-Care Prescriptions Lorazepam (ATIVAN) 1 Mg Tab 0.5 MG PO Q6H Y for Anxiety/Agitation, #10 TAB Prov: Nilo Beasley M.D. 06/06/17 Referrals No Doctor, Assigned (PCP) Forms HOME CARE DOCUMENTATION FORM, IMPORTANT VISIT INFORMATION Patient Instructions Anxiety Body Response, Anxiety Disorder Tx Meds, ED Upper Resp Infec No Abx Tx , My [facility] Additional Instructions Please return to the emergency department if you have worsening or recurrent symptoms not amenable to at-home treatment. Please call for a follow-up appointment with her primary care physician. Please take your medications as prescribed. If you have other concerns and/or complaints please feel free to also call your primary care physician's office or return the ED for further evaluation, management, and treatment. You received narcotic or benzodiazepene medication while in the emergency room today. This is an addictive medication that may cause drowziness as well as constipation. Do not drive, operate heavy machinery, or drink alcohol under the influence of this medication. Take 600 mg Ibuprofen every 6 hours w/ food for two days as needed for pain. May cause upset stomach. Take 1000mg tylenol every 6 hours for pain. You have been examined and treated today on an emergency basis only. This is not a substitute for, or an effort to provide, complete comprehensive medical care. It is impossible to recognize and treat all injuries or illnesses in a single emergency department visit. It is therefore important that you follow up closely with [facility]. Call as soon as possible for an appointment. Problem Qualifiers Additional Impression: Upper respiratory infection URI type: unspecified URI Qualified Codes: J06.9 - Acute upper respiratory infection, unspecified
[2017-06-06 13:06] LABS: BASO % 0.3 %; BASO ABS # 0.02 K/uL (0-0.2); COMPLETE YES; HEMATOCRIT 40.5 % (37-47); IG% 0.2 %; LYMPH % 38.4 %; LYMPH ABS # 2.39 K/uL (1.2-3.4); MEAN CELL VOLUME 92.9 fL (80-100); MEAN CORPUSCULAR HEMOGLOBIN 30.7 pg (25-34); MEAN CORPUSCULAR HGB CONC 33.1 g/dl (32-36); MEAN PLATELET VOLUME 9.9 fL (7.4-10.4); MONO % 8.2 %; NEUT % 51.9 %; PLATELET COUNT 320 K/uL (130-400); RED BLOOD COUNT 4.36 M/uL (4.2-5.4); WHITE BLOOD COUNT 6.22 K/uL (4.8-10.8)
[2017-06-06 13:25] LABS: BUN/CREATININE RATIO 10.3 (10-20); CREATININE 0.91 mg/dl (0.60-1.20); POTASSIUM 3.6 mmol/L (3.5-5.1)
[2017-06-06 13:29] LABS: ACETAMINOPHEN < 2 ug/ml (10-30)
[2017-06-06 13:35] LABS: URINE APPEARANCE CLEAR (CLEAR); URINE BILIRUBIN NEG (NEG); URINE COLOR YELLOW; URINE EPITHELIAL CELL AUTO 0-5 /lpf (0-5); URINE NITRITE NEG (NEG); URINE SPECIFIC GRAVITY 1.018 (1.000-1.030); UROBILINOGEN NEG (NEG); ZZUR CULT IF INDIC CLEAN CATCH NO
[2017-06-06 13:38] LABS: MANUAL MICROSCOPIC REQUIRED? NO; REVIEW REQ? NO
[2017-06-06] MEDS ORDERED: ATV/1 PO (13:53)
[2017-06-06 14:06] VITALS: BP 142/94; PULSE 75; O2SAT 98
== END 2017-06-06 14:07 | disposition home or self-care (01) ==
LOC: C.EDB 12:11 → C.EDC 14:07
DX: F41.9 Anxiety disorder, unspecified (principal); J06.9 Acute upper respiratory infection, unspecified; F33.9 Major depressive disorder, recurrent, unspecified; Z79.899 Other long term (current) drug therapy

== ENCOUNTER 2017-07-23 15:25 | Emergency (ER) | payer OTHER ==
[~2017-07-23] VITALS: Ht 170.2 cm; Wt 120.9 kg
[~2017-07-23 15:25] MED LIST changes: +BCPILLS PO; -CEPH500C2 PO; -METH0.2T39 PO; -OXYC1TAB3 PO; +SERT-234 PO
[2017-07-23 15:29] VITALS: TEMP 36.8; Ht 170.2 cm; Wt 120.9 kg
--- NOTE | 2017-07-23 16:07 | EMERGENCY ROOM VISIT NOTE ---
History First contact with patient: 15:49 Chief Complaint: ABDOMINAL PAIN Stated Complaint: STOMACH VIRUS, BACK PAIN, STOMACH PRESSURE/PAIN Nursing Triage Summary: Patient reports she had n/v/d for approx 48 hours states that today she is having sharp pain in lower abd and back. Patient also feels like her abd is distended. Patient still having nausea History of Present Illness The patient is a 26 year old female who presents to the Emergency Room with complaints of abdominal pain that started getting severe this morning. The patient reports having a GI illness yesterday. She had multiple episodes of vomiting and diarrhea. She also reports a fever of 101F. The vomiting and diarrhea have improved. The fever has also improved. She develops pain in the middle and lower abdomen earlier today. It has gotten progressively worse throughout the day. She also feels bloated. She denies any blood in her stool. She does note that people at work also had vomiting and diarrhea. Review of Systems 10 system review performed and negative unless noted in HPI or below Past Medical/Surgical History Medical Problems: (1) Anxiety (2) Fibromyalgia (3) Insomnia (4) Seasonal depression Social History Smoking Status: Never Smoker Marital Status: Occupation Status: employed Current/Historical Medications Scheduled Control Pills ( Control Pills), 1 TAB PO DAILY Bismuth Subsalicylate (Pepto-Bismol), 1 DOSE PO PRN Dicyclomine Hcl (Bentyl), 20 MG PO TID Duloxetine Hcl (Cymbalta), 60 MG PO DAILY Fish Oil ([place]-3), 1 CAP PO DAILY Ondasetron Odt (Zofran Odt), 4 MG SL Q6H Zolpidem Tartrate (Ambien), 1 TAB PO HS Physical Exam Vital Signs Date Time Temp Pulse Resp B/P (MAP) Pulse Ox O2 Delivery O2 Flow Rate FiO2 07/23/17 17:20 85 20 141/92 98 Room Air 07/23/17 15:29 36.8 95 20 136/85 96 Room Air Physical Exam VITALS: Vitals are noted on the nurse's note and reviewed by myself. Vital signs stable. GENERAL: 26-year-old female, in no acute distress, nondiaphoretic, well- developed well-nourished. SKIN: The skin was without rashes, erythema, edema, or bruising. HEAD: Normocephalic atraumatic. MOUTH: Mucous membranes dry NECK: No JVD. HEART: Regular rate and rhythm without murmurs gallops or rubs. LUNGS: Clear to auscultation bilaterally without wheezes, rales or rhonchi. No accessory muscle use. ABDOMEN: Positive bowel sounds x 4.Soft, mild tenderness to palpation in the epigastric region. without organomegaly. No guarding or rebound tenderness. MUSCULOSKELETAL: No muscle atrophy, erythema, or edema noted. Strength 5/5 throughout. NEURO: Patient was alert and oriented to person place and time. Normal sensation to touch. No focal neurological deficits. Medical Decision & Procedures ER Provider Diagnostic Interpretation: abdominal xrays IMPRESSION: 1. No active disease in the chest. 2. Nonobstructed abdominal bowel gas pattern. Electronically signed by: Elijah Conteh M.D. 07/23/2017 4:54 PM Laboratory Results 07/23/17 16:05 Red Blood Count 4.13, Mean Corpuscular Volume 90.3, Mean Corpuscular Hemoglobin 29.5, Mean Corpuscular Hemoglobin Concent 32.7, Mean Platelet Volume 9.3, Neutrophils (%) (Auto) 53.2, Lymphocytes (%) (Auto) 36.4, Monocytes (%) (Auto) 9.2, Eosinophils (%) (Auto) 0.8, Basophils (%) (Auto) 0.2, Neutrophils # (Auto) 3.35, Lymphocytes # (Auto) 2.29, Monocytes # (Auto) 0.58, Eosinophils # (Auto) 0.05, Basophils # (Auto) 0.01 07/23/17 16:05 Test 07/23/17 16:05 07/23/17 17:20 White Blood Count 6.29 K/uL (4.8-10.8) Red Blood Count 4.13 M/uL (4.2-5.4) Hemoglobin 12.2 g/dL (12.0-16.0) Hematocrit 37.3 % (37-47) Mean Corpuscular Volume 90.3 fL (80-100) Mean Corpuscular Hemoglobin 29.5 pg (25-34) Mean Corpuscular Hemoglobin Concent 32.7 g/dl (32-36) Platelet Count 248 K/uL (130-400) Mean Platelet Volume 9.3 fL (7.4-10.4) Neutrophils (%) (Auto) 53.2 % Lymphocytes (%) (Auto) 36.4 % Monocytes (%) (Auto) 9.2 % Eosinophils (%) (Auto) 0.8 % Basophils (%) (Auto) 0.2 % Neutrophils # (Auto) 3.35 K/uL (1.4-6.5) Lymphocytes # (Auto) 2.29 K/uL (1.2-3.4) Monocytes # (Auto) 0.58 K/uL (0.11-0.59) Eosinophils # (Auto) 0.05 K/uL (0-0.5) Basophils # (Auto) 0.01 K/uL (0-0.2) RDW Standard Deviation 48.2 fL (36.4-46.3) RDW Coefficient of Variation 14.6 % (11.5-14.5) Immature Granulocyte % (Auto) 0.2 % Immature Granulocyte # (Auto) 0.01 K/uL (0.00-0.02) Anion Gap 6.0 mmol/L (3-11) Est Creatinine Clear Calc Drug Dose 133.9 ml/min Estimated GFR () 108.8 Estimated GFR (Non- 93.9 BUN/Creatinine Ratio 14.2 (10-20) Calcium Level 8.5 mg/dl (8.5-10.1) Magnesium Level 1.9 mg/dl (1.8-2.4) Total Bilirubin 0.3 mg/dl (0.2-1) Aspartate Amino Transf (AST/SGOT) 10 U/L (15-37) Alanine Aminotransferase (ALT/SGPT) 16 U/L (12-78) Alkaline Phosphatase 61 U/L (45-117) Total Protein 7.1 gm/dl (6.4-8.2) Albumin 3.6 gm/dl (3.4-5.0) Globulin 3.5 gm/dl (2.5-4.0) Albumin/Globulin Ratio 1.0 (0.9-2) Urine Color DK YELLOW Urine Appearance CLEAR (CLEAR) Urine pH 6.5 (4.5-7.5) Urine Specific [place] 1.025 (1.000-1.030) Urine Protein NEG (NEG) Urine Glucose (UA) NEG (NEG) Urine Ketones NEG (NEG) Urine Occult Blood NEG (NEG) Urine Nitrite NEG (NEG) Urine Bilirubin NEG (NEG) Urine Urobilinogen NEG (NEG) Urine Leukocyte Esterase NEG (NEG) Urine Test NEG (NEG) Medications Administered Medications (Trade) Dose Ordered Sig/Dylan Route Start Time Stop Time Status Last Admin Dose Admin Sodium Chloride 1,000 ml @ 999 mls/hr Q1H1M ONCE IV 07/23/17 16:15 07/23/17 17:15 DC 07/23/17 16:19 999 MLS/HR Morphine Sulfate (MoRPHine SULFATE INJ) 4 mg Q1H PRN IV 07/23/17 16:15 07/23/17 18:32 DC 07/23/17 17:34 4 MG Ondansetron HCl (Zofran Inj) 4 mg Q2H PRN IV 07/23/17 16:15 07/23/17 18:32 DC 07/23/17 16:19 4 MG Dicyclomine HCl (Bentyl Cap) 20 mg STK-MED ONCE .ROUTE 07/23/17 16:16 07/23/17 16:17 DC 07/23/17 16:19 20 MG ED Course Patient was seen and examined Vital signs including blood pressure were reviewed medications list was verified with patient Labs were obtained, and a saline lock was established The patient was ordered morphine, Zofran and fluids. She was also ordered 1 dose of Bentyl. Upon reevaluation, the patient was still complaining of pain. She was given an additional dose of morphine. We discussed the results of her workup. She voiced understanding. I reviewed discharge instructions the patient. They voiced understanding and had no further questions. Medical Decision DIFFERENTIAL DIAGNOSIS: Gastroenteritis, Hepatitis, cholecystitis, cholangitis, biliary colic, pancreatitis, appendicitis, inguinal hernia, nephrolithiasis, inflammatory bowel disease, mesenteric adenitis, peptic ulcer disease, GERD, gastritis, pancreatitis,, bowel obstruction, splenic infarct, diverticulitis, mesenteric ischemia, metabolic, peritonitis, among others. This patient is a 26-year-old female that presents emergency department with vomiting, diarrhea and abdominal pain. On exam, she was tender in the epigastrium. She does not have any guarding or rebound. No signs of peritonitis. She was nontoxic in appearance. Her labs revealed no leukocytosis. LFTs and lipase are within normal limits. Abdominal films were obtained. No signs of obstruction noted. As the patient is adequately taking po, she is stable to be discharged home. The abdominal discomfort could still be secondary to her GI illness that she was suffering from yesterday that was probably viral. The patient was given a prescription for Zofran and Bentyl. She was instructed to follow-up with her primary care physician within the next several days. She will return here with any new or worsening symptoms. This chart was completed in part utilizing [employer] Speech Voice Recognition software. Attempts were made to minimize the grammatical errors, random word insertions, pronoun errors and incomplete sentences. Any formal questions or concerns about the content, text or information contained within the body of this dictation should be directly addressed to the provider for clarification. Blood Pressure Screening Patient's blood pressure: Normal blood pressure Impression Primary Impression: Abdominal pain Departure Information Dispostion Home / Self-Care Condition GOOD Prescriptions Ondasetron Odt (ZOFRAN ODT) 4 Mg Tab 4 MG SL Q6H for Nausea, #20 TAB Prov: Gela Bernard PA-C 07/23/17 Dicyclomine Hcl (BENTYL) 20 Mg Tab 20 MG PO TID for abdominal pain, #12 TAB Prov: Gela Bernard PA-C 07/23/17 Referrals No Doctor, Assigned (PCP) Patient Instructions ED Diet V[facility]iting Diarrhea[facility] Additional Instructions Please increase your fluid intake over the next 48 hours. Please follow a bland diet Please take medications as prescribed. Zofran 1 tab every 8 hours as needed for nausea Bentyl 1 tab every 8 hours as needed for abdominal pain Please follow-up with your primary care physician within the next 2 days for a recheck. Return to the emergency department if you have any of the following symptoms: -Fever of 103F or greater -Persistent vomiting - Persistent diarrhea -Worsening pain
[2017-07-23] MEDS ORDERED: ONDANSETRON INJ 2 MG/ML 2 ML VIAL IV PRN (16:15)
[2017-07-23] MEDS ORDERED: SODIUM CHLORIDE 0.9% 1000ML 1,000 ML IV ONE (16:15)
[2017-07-23] MEDS ORDERED: DICYCLOMINE HCL 20 MG TAB PO ONE (16:15)
[2017-07-23] MEDS ORDERED: DICYCLOMINE HCL 10 MG CAP ONE (16:16)
[2017-07-23] MEDS: MoRPHine SULFATE 4 MG/ML 1 ML CARP\\VIAL IV PRN ×2 (16:22→17:34)
[2017-07-23 16:27] LABS: BASO % 0.2 %; BASO ABS # 0.01 K/uL (0-0.2); COMPLETE YES; EOS % 0.8 %; HEMATOCRIT 37.3 % (37-47); IG% 0.2 %; LYMPH % 36.4 %; LYMPH ABS # 2.29 K/uL (1.2-3.4); MEAN CELL VOLUME 90.3 fL (80-100); MEAN CORPUSCULAR HEMOGLOBIN 29.5 pg (25-34); MEAN CORPUSCULAR HGB CONC 32.7 g/dl (32-36); MEAN PLATELET VOLUME 9.3 fL (7.4-10.4); MONO % 9.2 %; NEUT % 53.2 %; PLATELET COUNT 248 K/uL (130-400); RED BLOOD COUNT 4.13 M/uL (4.2-5.4); WHITE BLOOD COUNT 6.29 K/uL (4.8-10.8)
[2017-07-23 16:46] LABS: BUN/CREATININE RATIO 14.2 (10-20); CALCIUM 8.5 mg/dl (8.5-10.1); CREATININE 0.85 mg/dl (0.60-1.20); MAGNESIUM 1.9 mg/dl (1.8-2.4); POTASSIUM 3.6 mmol/L (3.5-5.1)
--- NOTE | 2017-07-23 16:55 | DIAGNOSTIC IMAGING REPORT ---
PA CHEST WITH ABDOMINAL SERIES CLINICAL HISTORY: Upper abdominal pain. Vomiting. FINDINGS: A PA chest radiograph is obtained. No prior studies are available for comparison at the time of dictation. The cardiomediastinal silhouette is unremarkable. The lungs and pleural spaces are clear. No pneumothorax is seen. The bony thorax is grossly intact. Supine and erect abdominal radiographs are obtained. No prior studies are available for comparison at the time of dictation. There is a nonobstructed abdominal bowel gas pattern. No evidence of intraperitoneal free air is seen. There are no abnormal abdominal calcifications. Small phleboliths are observed in the pelvis. The lumbosacral spine and bony pelvis appear intact. IMPRESSION: 1. No active disease in the chest. 2. Nonobstructed abdominal bowel gas pattern. Electronically signed by: Elijah Conteh M.D. 07/23/2017 4:54 PM Dictated Date/Time: 07/23/2017 4:53 PM
[2017-07-23] MEDS ORDERED: OMEG10007 PO (17:04)
[2017-07-23] MEDS ORDERED: ZOLP5TAB PO (17:04)
[2017-07-23] MEDS ORDERED: BISM262S7 PO (17:04)
[2017-07-23] MEDS ORDERED: DULO60CA44 PO (17:04)
[2017-07-23 17:20] VITALS: BP 141/92; PULSE 85; O2SAT 98
[2017-07-23 17:38] LABS: URINE APPEARANCE CLEAR (CLEAR); URINE BILIRUBIN NEG (NEG); URINE COLOR DK YELLOW; URINE NITRITE NEG (NEG); URINE PH 6.5 (4.5-7.5); URINE SPECIFIC GRAVITY 1.025 (1.000-1.030); UROBILINOGEN NEG (NEG)
[2017-07-23] MEDS ORDERED: ONDA4TAB10 SL (17:46)
[2017-07-23] MEDS ORDERED: DICY20TA35 PO (17:46)
[2017-07-23 17:50] LABS: MANUAL MICROSCOPIC REQUIRED? NO; REVIEW REQ? NO
== END 2017-07-23 17:50 | disposition home or self-care (01) ==
LOC: C.EDB 15:27
DX: R10.9 Unspecified abdominal pain (principal); R11.2 Nausea with vomiting, unspecified; R19.7 Diarrhea, unspecified; F41.9 Anxiety disorder, unspecified; M79.7 Fibromyalgia; G47.00 Insomnia, unspecified; F33.9 Major depressive disorder, recurrent, unspecified; Z79.3 Long term (current) use of hormonal contraceptives; Z79.899 Other long term (current) drug therapy

== ENCOUNTER 2017-12-20 13:55 | Emergency (ER) | payer OTHER ==
[~2017-12-20] VITALS: Ht 170.2 cm; Wt 122.3 kg
[~2017-12-20 13:55] MED LIST changes: +BISM262S7 PO; +DULO60CA44 PO; +OMEG10007 PO; +ONDA4TAB10 SL; -SERT-234 PO; +ZOLP5TAB PO
[2017-12-20 13:58] VITALS: TEMP 36.7; Ht 170.2 cm; Wt 122.3 kg
[2017-12-20] MEDS ORDERED: PRED20TA PO (14:15)
[2017-12-20] MEDS ORDERED: OXYC1TAB3 PO (14:15)
[2017-12-20] MEDS ORDERED: ACYC-56 PO (14:15)
[2017-12-20 14:44] VITALS: BP 113/75; PULSE 75; O2SAT 98
--- NOTE | 2017-12-20 18:54 | EMERGENCY ROOM VISIT NOTE ---
History Report prepared by Lali: Gadiel Butt Under the Supervision of: Dr. Montrell Alvarenga M.D. First contact with patient: 14:01 Chief Complaint: BACK PAIN Stated Complaint: HERNIATED DISC PAIN,SCIATICA PAIN,MIGRAINE History of Present Illness The patient is a 27 year old female who presents to the Emergency Room with complaints of constant left sided back pain for the past three days. She reports that the pain goes down the back of her left leg down to her ankle. 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 She states that she also has a history of migraines, and she has been having a headache for the past 2 days. She reports that this is similar to her prior migraines, and she states that she does not usually take any medications for her migraines. The patient states that she has been having some numbness and weakness in her leg, though she states that this is unchanged for her and that she has had it for years. She denies any saddle anesthesia, incontinence, fever , and abdominal pain. She patient also denies any chance of being and any recent falls. The patient additionally states that she has a history of genital herpes, and she thinks that she has been having a flare up. She states that she does not have a PCP, and though she states that she was initially prescribed medications when she was diagnosed with genital herpes, and this helped. Source of History: patient Onset: 3 days ago Position: back (left side) Symptom Intensity: moderate Timing: constant Modifying Factors (Worsening): movement Associated Symptoms: + headache, + weakness, + numbness, No fevers, No abdominal pain Note: Associated symptoms: Left leg pain down to her ankle. Review of Systems See HPI for pertinent positives & negatives. A total of 10 systems reviewed and were otherwise negative. Past Medical & Surgical Medical Problems: (1) Anxiety (2) Fibromyalgia (3) Insomnia (4) Seasonal depression Social History Smoking Status: Never Smoker Marital Status: Occupation Status: employed Current/Historical Medications Scheduled Acyclovir (Acyclovir), 1 TAB PO 5XD Control Pills ( Control Pills), 1 TAB PO DAILY Bismuth Subsalicylate (Pepto-Bismol), 1 DOSE PO PRN Duloxetine Hcl (Cymbalta), 60 MG PO DAILY Fish Oil ([place]-3), 1 CAP PO DAILY Prednisone (Prednisone), 0 PO DAILY Scheduled PRN Oxycodone Ir (Roxicodone Ir), 5 MG PO Q4H PRN for Pain Allergies Coded Allergies: Metronidazole (Verified Allergy, Intermediate, hives, 12/20/17) Sulfa Antibiotics (Unverified Allergy, Unknown, RASH, 12/20/17) Tetracycline (Unverified Allergy, Unknown, ANAPHYLAXIS, 12/20/17) STATES DOES NOT WANT TO TAKE ANY OF THE CYCLINES DUE TO THE SEVERE REACTION. Physical Exam Vital Signs Date Time Temp Pulse Resp B/P (MAP) Pulse Ox O2 Delivery O2 Flow Rate FiO2 12/20/17 14:44 75 16 113/75 98 Room Air 12/20/17 13:58 36.7 66 18 145/85 94 Room Air Physical Exam Constitutional: Vital signs reviewed. Eyes: Pupils are equal round reactive to light. Conjunctiva are noninjected. ENT: Pharynx is clear without erythema or exudate. Mucous membranes are moist. Neck supple without meningeal signs. Respiratory: Clear to auscultation bilaterally. Breath sounds are equal bilaterally. Cardiovascular: Regular rate and rhythm. No rubs or gallops. GI: Soft, nondistended and nontender. Bowel sounds are present. Musculoskeletal: No midline tenderness to the lumbosacral spine. No peripheral edema. Positive straight leg raise at 30 left leg. Integumentary: No cyanosis. Neurological: The patient is awake and alert. Cranial nerves II-XII are intact. Motor is 5 out of 5 all extremities. Sensation is intact to light touch all extremities. No motor or sensory deficit to the left leg. Normal speech. No pronator drift. Psychiatric: Normal affect. Medical Decision & Procedures ED Course 1401: The patient was evaluated in room C1. A complete history and physical exam was performed. I discussed the discharge instructions with the patient, and she was agreeable. The patient will be discharged home. Medical Decision This is a 27-year-old female presents with a headache and back pain. Differential diagnosis includes lumbar radiculopathy, strain, spinal stenosis, migraine headache. I did perform a limited focused review of portions of the patient's old chart on the electronic medical record. The patient has had no recent pertinent visits to this hospital. I did evaluate the patient as noted above. She is presenting with acute exacerbation of her chronic low back pain. She does state that she has chronic numbness and weakness to the left leg but on my examination she is neurologically intact without any focal deficits. She has no evidence of cauda equina syndrome. She denies any recent injury. She also states that she has a headache consistent with her prior migraine headaches. She also states that she has the beginnings of flare of her genital herpes and is requesting medication for this. The patient was given a prescription for prednisone, acyclovir and a short prescription for oxycodone. She was given precautions regarding this medication and advised to use it very sparingly. She was advised follow-up with a regular physician. She was discharged in good condition. [place] Drug Monitoring Program Search Results: patient reviewed within database, no issues identified Medication Reconcilliation Current Medication List: was personally reviewed by me Blood Pressure Screening Patient's blood pressure: Elevated blood pressure Blood pressure disposition: Elevated BP felt to be situational Impression Primary Impression: Acute exacerbation of chronic low back pain Additional Impressions: Migraine headache without aura Genital herpes Scribe Attestation The scribe's documentation has been prepared under my direct and personally reviewed by me in its entirety. I confirm that the note above accurately reflects all work, treatment, procedures, and medical decision making performed by me. Departure Information Dispostion Home / Self-Care Prescriptions Prednisone (Prednisone) 20 Mg Tab 0 PO DAILY, #14 TAB 3 TABS DAILY FOR 2 DAYS, THEN 2 TABS DAILY FOR 2 DAYS, THEN 1 TAB DAILY FOR 2 DAYS, THEN 1/2 TAB DAILY FOR 2 DAYS. Prov: Montrell Alvarenga M.D. 12/20/17 Oxycodone Ir (Roxicodone Ir) 5 Mg Tab 5 MG PO Q4H Y for Pain, #10 TAB Prov: Montrell Alvarenga M.D. 12/20/17 Acyclovir (Acyclovir) 200 Mg Cap 1 TAB PO 5XD for 5 Days, #25 TABS Prov: Montrell Alvarenga M.D. 12/20/17 Referrals No Doctor, Assigned (PCP) Forms HOME CARE DOCUMENTATION FORM, IMPORTANT VISIT INFORMATION Patient Instructions Back Pain - [facility], Headaches Migraine and Tension, My [facility] Problem Qualifiers Additional Impressions: Migraine headache without aura Status migrainosus presence: without status migrainosus Intractability: not intractable Qualified Codes: G43.009 - Migraine without aura, not intractable , without status migrainosus Genital herpes Herpes simplex infection site: unspecified Qualified Codes: A60.00 - Herpesviral infection of urogenital system, unspecified
== END 2017-12-20 14:46 | disposition home or self-care (01) ==
LOC: C.EDB 13:57 → C.EDC 14:46
DX: M54.16 Radiculopathy, lumbar region (principal); G89.29 Other chronic pain; G43.009 Migraine without aura, not intractable, without status migrainosus; A60.09 Herpesviral infection of other urogenital tract; Z79.3 Long term (current) use of hormonal contraceptives; Z88.1 Allergy status to other antibiotic agents; Z88.2 Allergy status to sulfonamides

== ENCOUNTER 2018-05-15 20:41 | Emergency (ER) | payer OTHER ==
[~2018-05-15] VITALS: Ht 170.2 cm; Wt 128.4 kg
[~2018-05-15 20:41] MED LIST changes: -BCPILLS PO; -BISM262S7 PO; -DULO60CA44 PO; -OMEG10007 PO; -ONDA4TAB10 SL; +TRAZ100T29 PO; -ZOLP5TAB PO
[2018-05-15 20:43] VITALS: TEMP 37.1; Ht 170.2 cm; Wt 128.4 kg
[2018-05-15] MEDS ORDERED: CEFTRIAXONE SOD INJ 1 GM ADDVIAL IV STA (21:12)
[2018-05-15] MEDS ORDERED: KETOROLAC TROMETHAMINE 30 MG/ML VIAL IV STA (21:12)
[2018-05-15] MEDS ORDERED: ACETAMINOPHEN 325 MG TAB PO STA (21:12)
--- NOTE | 2018-05-15 21:24 | EMERGENCY ROOM VISIT NOTE ---
History Report prepared by Lali: Wicho Ohara Under the Supervision of: Dr. Nilo Beasley M.D. First contact with patient: 20:49 Chief Complaint: URINARY SYMPTOMS Stated Complaint: UTI SYMPTOMS AFTER BLADER SURGURY Nursing Triage Summary: Patient reports she had urinary surgery approx 5 months ago and now doesn't void normal amounts. Patient last voided 1 hour ago. History of Present Illness The patient is a 27 year old female with a past medical history of depression, anxiety, UTI, pyelonephritis, fibromyalgia and insomnia who presents to the ED with a cc of a constant, throbbing pain in the lower abdomen that radiates to her lower back and hip beginning about an hour ago. The patient underwent a hydrodistention on her bladder 5 months ago and has not been able to urinate normally since. The patient reports that she regularly gets UTI symptoms but does not usually test positive for UTIs. She notes that she was on medications but they did not help so she stopped taking them. She did note however that Rocephin does help alleviate the symptoms. Her menstrual period is a week late which the patient contributes to stress and states she is on Sprintec. Positive nausea. Negative fever and vomiting. Source of History: patient Onset: An hour ago Position: abdomen, pelvis Quality: other (Throbbing) Timing: constant Associated Symptoms: + nausea, + back pain, No fevers, No vomiting Review of Systems See HPI for pertinent positives and negatives. A total of ten systems were reviewed and were otherwise negative. Past Medical & Surgical Medical Problems: (1) Anxiety (2) Fibromyalgia (3) Insomnia (4) Seasonal depression Family History Patient reports no known family medical history. Social History Smoking Status: Never Smoker Marital Status: Occupation Status: employed Current/Historical Medications Scheduled Control Pills ( Control Pills), 1 TAB PO DAILY Cephalexin (Keflex), 1 CAP PO BID Allergies Coded Allergies: Metronidazole (Verified Allergy, Intermediate, hives, 04/12/18) Sulfa Antibiotics (Unverified Allergy, Unknown, RASH, 04/12/18) Tetracycline (Unverified Allergy, Unknown, ANAPHYLAXIS, 04/12/18) STATES DOES NOT WANT TO TAKE ANY OF THE CYCLINES DUE TO THE SEVERE REACTION. Physical Exam Vital Signs Date Time Temp Pulse Resp B/P (MAP) Pulse Ox O2 Delivery O2 Flow Rate FiO2 05/15/18 22:49 58 18 121/89 98 Room Air 05/15/18 22:49 58 18 121/89 98 05/15/18 20:43 37.1 82 20 155/100 98 Room Air Physical Exam GENERAL: Awake, alert, well-appearing, NAD, obese HENT: Normocephalic, atraumatic. EYES: Normal conjunctiva. Sclera non-icteric. PERRL. No anisocoria. NECK: Supple. No nuchal rigidity. FROM. RESPIRATORY: CTAB, no rhonchi, wheezing, crackles CARDIAC: RRR, no MRG ABDOMEN: Soft, NTND, BS+. No CVA TTP. Lower abdomen discomfort. Not peritonitic. MSK: No chest wall TTP, no LE edema NEURO: GCS 15, CN 2-12 intact, moves all 4s on command SKIN: No rash or jaundice noted. Medical Decision & Procedures Laboratory Results Test 05/15/18 21:30 Urine Color DK YELLOW Urine Appearance CLOUDY (CLEAR) Urine pH 5.5 (4.5-7.5) Urine Specific [place] 1.037 (1.000-1.030) Urine Protein 1+ (NEG) Urine Glucose (UA) NEG (NEG) Urine Ketones NEG (NEG) Urine Occult Blood 3+ (NEG) Urine Nitrite NEG (NEG) Urine Bilirubin NEG (NEG) Urine Urobilinogen NEG (NEG) Urine Leukocyte Esterase NEG (NEG) Urine WBC (Auto) 5-10 /hpf (0-5) Urine RBC (Auto) >30 /hpf (0-4) Urine Hyaline Casts (Auto) 5-10 /lpf (0-5) Urine Epithelial Cells (Auto) >30 /lpf (0-5) Urine Bacteria (Auto) 1+ (NEG) Urine Renal Epithelial Cells 5-10 /lpf (0-5) Urine Test NEG (NEG) Laboratory results reviewed by me Medications Administered Medications (Trade) Dose Ordered Sig/Dylan Route Start Time Stop Time Status Last Admin Dose Admin Ceftriaxone Sodium (Rocephin Inj) 1 gm NOW STAT IV 05/15/18 21:12 05/15/18 21:13 DC 05/15/18 21:38 1 GM Ketorolac Tromethamine (Toradol Inj) 30 mg NOW STAT IV 05/15/18 21:12 05/15/18 21:13 DC 05/15/18 21:38 30 MG Acetaminophen (Tylenol Tab) 650 mg NOW STAT PO 05/15/18 21:12 05/15/18 21:13 DC 05/15/18 21:39 650 MG ED Course 2056: The patient was evaluated in room C2B. A complete history and physical exam was performed. 2204: I reevaluated the patient. Discussed results and discharge instructions: She verbalized understanding and agreement. The patient is ready for discharge. Medical Decision Nursing notes reviewed. Ancillary studies and prior records reviewed. The patient is a 27 year old female with a past medical history of depression, anxiety, UTI, pyelonephritis, fibromyalgia and insomnia who presents to the ED with a cc of a constant, throbbing pain in the lower abdomen that radiates to her lower back and hip beginning about an hour ago. Differential diagnosis: Etiologies such as appendicitis, diverticulitis, PUD, biliary pathology, UTI, pancreatitis, obstruction, mesenteric ischemia, aortic pathology, infections, inflammatory bowel disease, renal colic, as well as others were entertained. Patient was seen and evaluated the bedside. Patient related some urinary discomfort and difficulty with voiding. Patient states that she frequently has UTIs. Patient states that she had a bladder overexpansion procedure where the bladder was distended greatly with volume where she used to live in [place] several months ago. Patient has not had any recent procedures. The patient has a soft abdomen and normal vital signs. Patient was treated with Rocephin and Toradol. The patient did have urinalysis urine patency test. Patient's urine may be contaminated but there is bacteria so I believe treatment is appropriate given the patient's history and symptoms. Patient does not have any evidence of Mushtaq or CVA TTP. Patient was given strict follow-up, discharge, and return precautions. All questions were answered. Patient was deemed suitable for outpatient follow-up at this time. Patient agreed with the plan of care and was safely discharged home. Medication Reconcilliation Current Medication List: was personally reviewed by me Blood Pressure Screening Patient's blood pressure: Elevated blood pressure Blood pressure disposition: Referred to PCP Impression Primary Impression: UTI (urinary tract infection) Scribe Attestation The scribe's documentation has been prepared under my direction and personally reviewed by me in its entirety. I confirm that the note above accurately reflects all work, treatment, procedures, and medical decision making performed by me. Departure Information Dispostion Home / Self-Care Prescriptions Cephalexin (KEFLEX) 500 Mg Cap 1 CAP PO BID for 7 Days, #14 CAP Prov: Nilo Beasley M.D. 05/15/18 Referrals Lauren Flores DO (PCP) Forms HOME CARE DOCUMENTATION FORM, IMPORTANT VISIT INFORMATION Patient Instructions ED UTI Cystitis Female, My [facility] Additional Instructions Please return to the emergency department if you have worsening or recurrent symptoms not amenable to at-home treatment. Please call for a follow-up appointment with her primary care physician. Please take your medications as prescribed. If you have other concerns and/or complaints please feel free to also call your primary care physician's office or return the ED for further evaluation, management, and treatment. You were found to have an elevated blood pressure today (>120 sytolic or >90 diastolic). Per medicare guidelines, you need to follow up with this blood pressure screening with your Primary Care Physician (PCP). For a new PCP call [phone]. You received narcotic or benzodiazepene medication while in the emergency room today. This is an addictive medication that may cause drowziness as well as constipation. Do not drive, operate heavy machinery, or drink alcohol under the influence of this medication. You may take 600 mg Ibuprofen every 6 hours as needed for pain/fever with food unless told by your physician not to take NSAIDs. You may take tylenol 650 mg every 6 hours as needed for pain/fever unless told by your physician to not take it or have liver problems. You may take motrin and tylenol separately or at the same time. Take your medications as prescribed. If taking an antibiotic consider taking a probiotic and/or eating yogurt, but at the least, please take with food as it can cause upset stomach. If culture results are not available at discharge, if they are positive for concern of infection, you will be informed of the results as soon as they are available. You have been examined and treated today on an emergency basis only. This is not a substitute for, or an effort to provide, complete comprehensive medical care. It is impossible to recognize and treat all injuries or illnesses in a single emergency department visit. It is therefore important that you follow up closely with [facility], your PCP, and/or your specialist(s). Call as soon as possible for an appointment. Thank you for your time and consideration. I look forward to speaking with you again soon. Please don't hesitate to call us if you have any questions. [facility] [address] [place] [address] Thursday through , from 9:00 am to 5:00 pm Thursday, from 9:00 am - 2:[address] [address] Thursday, from 9:30 am to 4:30 pm [facility] [address] [place] [address], [address] [place] [address] Call for an appointment [address], [address] [place] [address] Two Fridays of each month Problem Qualifiers Primary Impression: UTI (urinary tract infection) Urinary tract infection type: acute cystitis Hematuria presence: with hematuria Qualified Codes: N30.01 - Acute cystitis with hematuria
[2018-05-15] MEDS ORDERED: BCPILLS PO (21:31)
[2018-05-15] MEDS ORDERED: CEPH-571 PO (22:12)
[2018-05-15 22:49] VITALS: BP 121/89; PULSE 58; O2SAT 98
== END 2018-05-15 22:45 | disposition home or self-care (01) ==
LOC: C.EDB 20:42 → C.EDC 22:45
DX: N30.01 Acute cystitis with hematuria (principal); R03.0 Elevated blood-pressure reading, without diagnosis of hypertension; E66.9 Obesity, unspecified; Z87.440 Personal history of urinary (tract) infections; Z98.890 Other specified postprocedural states; Z79.3 Long term (current) use of hormonal contraceptives; Z88.1 Allergy status to other antibiotic agents; Z88.2 Allergy status to sulfonamides